=== PATIENT | male | born 1995 | race Two or more races ===

== ENCOUNTER 2020-12-17 19:18 | Outpatient (CLI) | payer MEDICAID | END 2020-12-17 19:19 | disposition critical access hospital (66) | LOC: EMS 19:18 | DX: K92.0 Hematemesis (principal) | CPT/HCPCS: A0425; A0429 ==

== ENCOUNTER 2020-12-17 19:38 | Emergency (ER) | payer MEDICAID ==
[2020-12-17] MEDS ORDERED: BUPRENORPHINE 0.3 MG/ML VIAL IVP ONE (19:42)
[2020-12-17] MEDS ORDERED: ONDANSETRON 4 MG/2 ML VIAL IVP STA (19:42)
[2020-12-17] MEDS ORDERED: SODIUM CHLORIDE 0.9% 1,000 ML IV STA (19:42)
--- NOTE | 2020-12-17 19:44 | ED Physician Documentation ---
PD HPI ABD PAIN - Stated complaint Stated Complaint: VOMITING - Chief complaint Chief Complaint: Abd Pain - History obtained from History obtained from: Patient - Additional information Additional information: 25-year-old gentleman is at a rehab center for fentanyl. Last used 2 days ago. There His withdrawals have been treated with Phenergan and clonidine and it has been insufficient and he has been vomiting all day. There was some confused confusion as to whether the vomit was bloody or not. It was described as dark, he does not think it was bloody though. Review of Systems Ten Systems: 10 systems reviewed and negative Constitutional: reports: Reviewed and negative Ears: reports: Reviewed and negative Nose: reports: Reviewed and negative PD PAST MEDICAL HISTORY - Present Medications Home Medications: Ambulatory Orders Medication Instructions Recorded Confirmed Naloxone HCl [Narcan] 4 mg NS DAILY PRN 12/17/20 12/17/20 Ondansetron Odt [Zofran Odt] 4 mg PO Q8HR PRN 12/17/20 12/17/20 Promethazine [Phenergan] 12.5 mg PO TID 12/17/20 12/17/20 traZODone [Desyrel] 50 mg PO QPM 12/17/20 12/17/20 - Allergies Allergies/Adverse Reactions: Allergies Allergy/AdvReac Type Severity Reaction Status Date / Time No Known Drug Allergies Allergy Verified 12/17/20 19:47 PD ED PE NORMAL - Vitals Vital signs reviewed: Yes - General General: Alert and oriented X 3, Other (He is shaky and agitated consistent with acute narcotic withdrawal.) - HEENT HEENT: Other (Dilated pupils) - Neck Neck: Supple, no meningeal sign, No bony TTP - Cardiac Cardiac: RRR, No murmur - Respiratory Respiratory: No respiratory distress, Clear bilaterally - Abdomen Abdomen: Normal bowel sounds, Soft, Non tender - Back Back: No CVA TTP, No spinal TTP - Derm Derm: Normal color, Warm and dry - Extremities Extremities: No edema, No calf tenderness / cord - Neuro Neuro: Alert and oriented X 3, Normal speech Results - Vitals Vitals: Vital Signs - 24 hr 12/17/20 12/17/20 19:35 20:15 Temperature 37.4 C 36.6 C Heart Rate 60 90 Respiratory 18 18 Rate Blood Pressure 125/94 H 116/68 O2 Saturation 95 98 Oxygen O2 Source Room air - Labs Labs: Laboratory Tests 12/17/20 12/17/20 19:55 19:55 WBC 11.8 H RBC 5.20 Hgb 16.1 Hct 46.3 MCV 89.0 MCH 31.0 MCHC 34.8 RDW 12.4 Plt Count 339 MPV 10.2 Neut # (Auto) 10.2 H Lymph # (Auto) 1.2 L Tompkins # (Auto) 0.3 Eos # (Auto) 0.0 Baso # (Auto) 0.0 Absolute Nucleated RBC 0.00 Nucleated RBC % 0.0 Sodium 142 Potassium 3.5 Chloride 104 Carbon Dioxide 25 Anion Gap 13.0 BUN 17 Creatinine 0.8 Estimated GFR (MDRD) 118 Glucose 142 H Calcium 10.0 PD MEDICAL DECISION MAKING - ED course ED course: 25-year-old gentleman presents with vomiting all day in the setting of narcotic withdrawal. It is potentially possible that his emesis has been bloody but he does not think it was. 25-year-old gentleman presents with vomiting in the setting of fentanyl withdrawal. He came from detox. Concern was that the emesis was bloody. He had no emesis here and his H&H is on the high end of normal. Feeling better after a dose of buprenorphine and IV Reglan and some IV fluids. Departure - Departure Disposition: 01 Home, Self Care Clinical Impression: Narcotic withdrawal Vomiting Qualifiers: Vomiting type: unspecified Vomiting Intractability: non-intractable Nausea presence: with nausea Qualified Code(s): R11.2 - Nausea with vomiting, unspecified Condition: Good Record reviewed to determine appropriate education?: Yes Instructions: ED Nausea Vomiting Comments: Return to inpatient treatment center for further evaluation and treatment. Return for new or worsening symptoms.
[2020-12-17 20:07] LABS: BASOPHILS % (AUTO) 0.1 %; HCT - HEMATOCRIT 46.3 % (42.0-52.0); HGB - HEMOGLOBIN 16.1 g/dL (14.0-18.0); LYMPHOCYTES # (AUTO) 1.2 10^3/uL (1.5-3.5); LYMPHOCYTES % (AUTO) 10.4 %; MEAN CORPUSCULAR HGB CONC 34.8 g/dL (32.0-36.0); MEAN PLATELET VOLUME 10.2 fL (7.4-11.4); MONOCYTES # (AUTO) 0.3 10^3/uL (0.0-1.0); MONOCYTES % (AUTO) 2.8 %; NEUTROPHILS # (AUTO) 10.2 10^3/uL (1.5-6.6); NEUTROPHILS % (AUTO) 86.4 %; PLT - PLATELET COUNT 339 10^3/uL (130-450); RED CELL DISTRIBUTION WIDTH 12.4 % (12.0-15.0); WHITE BLOOD COUNT 11.8 x10^3/uL (4.8-10.8)
[2020-12-17 20:16] LABS: CREATININE 0.8 mg/dL (0.6-1.2); POTASSIUM 3.5 mmol/L (3.5-5.0)
[2020-12-17] MEDS ORDERED: METOCLOPRAMIDE 10 MG/2 ML VIAL IVP STA (20:48)
[2020-12-17 21:28] VITALS: BP 130/85
== END 2020-12-17 22:50 | disposition home or self-care (01) ==
LOC: ED 19:38
DX: F19.239 Other psychoactive substance dependence with withdrawal, unspecified (principal); R11.2 Nausea with vomiting, unspecified; Z79.899 Other long term (current) drug therapy
CPT/HCPCS: 36415; 80048; 85025; 96361; 96374; 96375; 99283; 99284; J0592; J2765